=== PATIENT | female | born 2000 | race African-American/Black ===

== ENCOUNTER 2022-09-24 12:16 | Emergency (ER) | payer OTHER, SELFPAY ==
[2022-09-24 12:30] VITALS: BP 114/72; PULSE 75; RESP 23; TEMP 37.1; O2SAT 98; BMI 55.5
--- NOTE | 2022-09-24 12:59 | EXP.UTC ---
Discharge Plan Disposition Patient Disposition: Home, Self-Care Condition: Good Referrals Follow up/Referrals: Provider,Referral, MD [Primary Care Provider] - See instructions Activity Restrictions/Add. Instructions Additional Instructions/Restrictions: Follow up with your Family Doctor if you continue to have ear pain Return if needed Straight to ER if any life threatening symptoms Clinical Impressions Clinical Impression: Ear pain Instructions Patient Instructions: DI for Ear Pain-Adult Discharge ED Provider: Nila Teran [facility] General Stated complaint: Lt ear pain Mode of Arrival: Ambulatory Source of Information: Patient Limitations: No Limitations Time Seen by Provider: 09/24/22 12:59 Description of Symptoms (Recalled from Triage Doc. by RN): PATIENT C/O LEFT EAR PAIN X 1 WEEK. ALSO REQUESTING TO GET CHECKED FOR HEENT Symptoms (Recalled from RN notes): Yes Resp Symptoms (Recalled from RN notes): No Skin Symptoms (Recalled from RN notes): No MS Symptoms (Recalled from RN notes): No Functional Status (Recalled from RN notes): WNL History of Present Illness Provider Complaint: Patient states that she has been having pain in her left ear for about a week States that she has also been having like symptoms States that she has been nauseous in the morning, breast tenderness states that she took home and it was negative but wanted to get blood test Related Data Allergies Allergy/AdvReac Type Severity Reaction Status Date / Time No Known Allergies Allergy Verified 09/24/22 12:53 Worker's Comp Is this a Worker's Comp case?: No [facility] Disclaimer: The information contained in this section may have been updated after the patient was seen, as this information can be updated by other users. Social History Smoking Status: Unknown if ever smoked alcohol intake: never current occupational status: employed Travel in the last 8 weeks: None ROS Obtained: Yes All systems reviewed & no additional complaints except as documented and Yes Systems reviewed as appropriate & no additional complaints except as documented ENT Ears, Nose, Mouth, and Throat: Reports system reviewed and no additional complaints, except as documented, Reports as per HPI and Reports otalgia Cardiovascular Cardiovascular: Reports system reviewed and no additional complaints, except as documented and Reports as per HPI Respiratory Respiratory: Reports system reviewed and no additional complaints, except as documented and Reports as per HPI Gastrointestinal Gastrointestingal: Reports system reviewed and no additional complaints, except as documented and as per HPI Physical Exam General General appearance: alert and in no apparent distress ENT ENT exam: Present TM's normal bilaterally (copious amounts of wax noted no redness) Respiratory Respiratory exam: Present normal lung sounds bilaterally; Absent respiratory distress or wheezes Cardiovascular Cardiovascular exam: Present regular rate, normal rhythm and normal heart sounds Abdominal Exam Abdominal exam: Present soft and normal bowel sounds; Absent distention or tenderness Neurological Exam Neurological exam: Present alert, oriented X3 and normal gait Medical Decision Making Braden Inquiry Pt receiving controlled substance: No Braden was queried for this patient: No Vital Signs: 09/24/22 12:30 Temperature 98.7 F Temperature Source Oral Pulse Rate [Right Brachial] 75 Respiratory Rate 23 Blood Pressure [Right Arm] 114/72 Blood Pressure Mean [Right Arm] 86 Blood Pressure Source [Right Arm] Automatic Cuff Blood Pressure Position [Right Arm] Sitting 02 Sat by Pulse Oximetry 98 Oxygen Delivery Method Room Air Lab Data Lab results reviewed: Yes I reviewed the patient's lab results. Orders (Tests/Meds): ORDERS Category Date Time Status HCG Qualitative, Serum Stat Lab 09/24/22 12:53 Ordered
[2022-09-24 13:17] LABS: UTC Pregnancy Test, Urine Negative (Negative)
[2022-09-24 13:36] LABS: HCG Qualitative, Serum Negative (Negative)
[2022-09-24 13:45] VITALS: BP 114/72; PULSE 75; RESP 23; TEMP 37.1; O2SAT 98
== END 2022-09-24 13:47 | disposition home or self-care (01) ==
PROVIDERS: Emergency Provider Nurse Practitioner
DX: H92.02 Otalgia, left ear (principal); Z32.02 Encounter for pregnancy test, result negative
CPT/HCPCS: 81025; 84703; 99212; G0463